=== PATIENT | male | born 1960 | race Caucasian/White ===

== ENCOUNTER 2017-10-29 09:01 | Day surgery (SDC) | payer BC ==
[~2017-10-29 09:01] MED LIST: LIDOCAINE HCL 1% MPF SOL ONE; PROPOFOL 500 MG/50 ML EMU IV ONE
[2017-10-29 11:05] VITALS: BP 132/84; PULSE 72; RESP 18; TEMP 97.4; O2SAT 96
== END 2017-10-29 11:26 | disposition home or self-care (01) ==
LOC: SURG 09:01
PROVIDERS: ATTEND Surgery
DX: Z12.11 Encounter for screening for malignant neoplasm of colon (principal); D12.2 Benign neoplasm of ascending colon; D12.0 Benign neoplasm of cecum; D12.5 Benign neoplasm of sigmoid colon; K63.5 Polyp of colon; K62.1 Rectal polyp
CPT/HCPCS: 99001; J2001; J2704

== ENCOUNTER 2019-05-20 12:37 | Emergency (ER) | payer BC ==
[2019-05-20] MEDS ORDERED: ASPIRIN 81 MG CHEWABLE CTB ONE (12:44)
[2019-05-20] MEDS ORDERED: SODIUM CHLORIDE 0.9% FLUSH 10 ML SOL IV PRN (12:56)
[2019-05-20] MEDS ORDERED: ASPIRIN 81 MG CHEWABLE CTB PO STA (12:56)
[2019-05-20] MEDS ORDERED: NITROGLYCERIN 0.4 MG TAB SL PRN (12:56)
[2019-05-20 13:07] LABS: BASOPHILS % (AUTO) 1 % (0-3); EOSINOPHILS % (AUTO) 1 % (0-9); HEMATOCRIT 44 % (39-53); HEMOGLOBIN 14.9 gm/dl (13.5-17.7); LYMPHOCYTES % (AUTO) 20.1 % (10-50); MEAN CORPUSCULAR HEMOGLOBIN 31.8 pg (27.0-32.0); MEAN CORPUSCULAR HGB CONC 33.8 gm/dl (32.0-36.0); MEAN CORPUSCULAR VOLUME 94 fL (80-100); MONOCYTES % (AUTO) 7.4 % (0-12); NEUTROPHILS % (AUTO) 70.5 % (37-80)
[2019-05-20 13:12] LABS: BLOOD UREA NITROGEN 14 mg/dl (7-18); CALCIUM 8.5 mg/dl (8.5-10.1); CARBON DIOXIDE 27.2 mEq/L (21-32); CHLORIDE 102 mMol/L (98-107); CREATINE KINASE 86 U/L (39-308); CREATININE 0.79 mg/dl (0.80-1.30); GLUCOSE 146 mg/dl (74-106); TROP I < 0.017 ng/ml (0.000-0.056)
[2019-05-20 14:18] VITALS: PULSE 70; RESP 18; O2SAT 96
[2019-05-20 14:40] VITALS: BP 136/74
== END 2019-05-20 14:52 | disposition home or self-care (01) ==
LOC: ED 12:37
DX: R07.9 Chest pain, unspecified (principal); I10 Essential (primary) hypertension
CPT/HCPCS: 36415; 71045; 80048; 82550; 84484; 85025; 85610; 93005; 99283; 99284